=== PATIENT | male | born 1975 | race Caucasian/White ===

== ENCOUNTER 2020-10-04 19:53 | Observation (INO) ==
[2020-10-05] MEDS ORDERED: Perflutren Lipid Microsphere 1.3 ML in 0.9 % Sodium Chloride 8.7 ML IVP PRN (00:30)
[2020-10-05] MEDS ORDERED: *HR* Metoprolol 5 MG/5 ML VIAL IVP PRN (00:33)
[2020-10-05] MEDS: Aspirin Enteric Coated 81 MG Tablet PO SCH ×2 (00:50→07:41)
[2020-10-05] MEDS ORDERED: *HR* LORazepam 2 MG/ML VIAL IVP PRN ×3 (01:25)
[2020-10-05 05:49] LABS: Estimated Average Glucose 123 mg/dl; Hemoglobin A1C 5.9 %
[2020-10-05] MEDS ORDERED: *HR* Heparin 5,000 UNIT/ML VIAL SQ SCH (06:00)
[2020-10-05 06:10] LABS: Chol/HDL Ratio 5.2 (0-4.9); Cholesterol 196 mg/dL (< 200); HDL Cholesterol 38 mg/dL (40-59); LDL Cholesterol,Calculated 141 mg/dL (< 100); Triglycerides 87 mg/dL (< 150); Troponin I < 0.03 ng/mL (< 0.04)
[2020-10-05 06:27] LABS: Folate 10.8 ng/mL (3.0-16.0)
[2020-10-05] MEDS ORDERED: Folic Acid 1 MG TABLET PO SCH (09:00)
[2020-10-05] MEDS ORDERED: Thiamine (B-1) 100 MG TABLET PO SCH (09:00)
[2020-10-05 15:42] VITALS: BP 139/80; PULSE 77; TEMP 98.6; O2SAT 95
== END 2020-10-05 16:45 | disposition home or self-care (01) ==
LOC: 3BNU
PROVIDERS: ADMIT Internal Medicine; ATTEND Internal Medicine

== ENCOUNTER 2020-10-12 19:05 | Inpatient (IN) ==
[2020-10-12] MEDS ORDERED: Ondansetron 4 MG/2 ML VIAL IVP PRN (22:34)
[2020-10-12] MEDS ORDERED: Naloxone 0.4 MG/ML INJ IVP PRN (22:34)
[2020-10-12] MEDS ORDERED: 0.9 % Sodium Chloride 1,000 ML IVC SCH (22:45)
[2020-10-12] MEDS ORDERED: *HR* LORazepam 2 MG/ML VIAL IVP PRN ×3 (22:47)
[2020-10-12] MEDS: Nicotine 14 MG PATCH.TD24 TD SCH (23:18)
[2020-10-12 23:30] LABS: Troponin I < 0.03 ng/mL (< 0.04)
[2020-10-12 23:43] LABS: Thyroid Stimulating Hormone 2.461 mcIU/mL (0.340-5.600)
[2020-10-12] MEDS ORDERED: *HR* LORazepam 1 MG TABLET PO ONE (23:49)
[2020-10-13] MEDS: *HR* OxyCODONE Immed Rel 5 MG TABLET PO PRN ×4 (00:03→23:12)
[2020-10-13 02:54] LABS: Hematocrit 37.7 % (37.5-50.1); Hemoglobin 12.7 g/dL (12.9-16.9); Mean Corpuscular HGB Conc 33.7 g/dL (31.6-35.5); Mean Corpuscular Hemoglobin 32.6 pg (28.0-33.3); Mean Corpuscular Volume 96.7 fL (83.0-100.0); Mean Platelet Volume 9.7 fL (9.4-12.4); Platelet Count 376 K/mcL (140-400); Red Cell Distribution Width 12.1 % (11.5-14.5); White Blood Count 15.9 K/mcL (4.3-11.1)
[2020-10-13 03:14] LABS: BUN/Creatinine Ratio 14 (6-26); Blood Urea Nitrogen 12 mg/dL (6-20); Calcium 8.8 mg/dL (8.6-10.3); Carbon Dioxide 21 mEq/L (23-29); Chloride 103 mEq/L (98-107); Chol/HDL Ratio 2.8 (0-4.9); Cholesterol 105 mg/dL (< 200); Glucose 105 mg/dL (70-105); HDL Cholesterol 37 mg/dL (40-59); LDL Cholesterol,Calculated 55 mg/dL (< 100); Osmolality,Calculated 276 (280-300); Potassium 3.8 mEq/L (3.5-5.1); Sodium 133 mEq/L (136-145); Triglycerides 66 mg/dL (< 150); eGFR For African Americans > 60 (> 60); eGFR For Non-African Americans > 60 (> 60)
[2020-10-13] MEDS: Piperacillin/Tazobactam 3.375 GM in 0.9 % Sodium Chloride Mini Bag 100 ML IVPB SCH ×3 (09:27→23:06)
[2020-10-13] MEDS ORDERED: Vancomycin 1,500 MG/265 ML IV.SOLN IVPB ONE (10:00)
[2020-10-13] MEDS: Acetaminophen 325 MG TABLET PO PRN (12:03)
[2020-10-13] MEDS: Gabapentin 300 MG CAPSULE PO SCH ×3 (12:03→19:35)
[2020-10-13] MEDS ORDERED: Vancomycin 1,500 MG/265 ML IV.SOLN IVPB SCH (23:00)
[2020-10-13] MEDS: Nicotine 14 MG PATCH.TD24 TD SCH (23:05)
[2020-10-14] MEDS: Acetaminophen 325 MG TABLET PO PRN (01:39)
[2020-10-14 01:49] LABS: Basophils # 0.1 K/mcL (0.0-0.2); Basophils % 0.4 %; Eosinophils # 0.1 K/mcL (0.0-0.6); Eosinophils % 0.5 %; Hematocrit 41.5 % (37.5-50.1); Hemoglobin 13.7 g/dL (12.9-16.9); Immature Granulocytes % 0.5 % (0-4); Lymphocytes # 1.9 K/mcL (0.6-4.6); Lymphocytes % 11.3 %; Mean Corpuscular Hemoglobin 32.1 pg (28.0-33.3); Mean Corpuscular Volume 97.2 fL (83.0-100.0); Mean Platelet Volume 9.4 fL (9.4-12.4); Monocytes # 1.4 K/mcL (0.0-1.3); Monocytes % 8.3 %; Neutrophils # 13.2 K/mcL (1.6-8.9); Platelet Count 417 K/mcL (140-400); Red Blood Count 4.27 M/mcL (4.19-5.50); Red Cell Distribution Width 12.2 % (11.5-14.5); White Blood Count 16.8 K/mcL (4.3-11.1)
[2020-10-14 02:09] LABS: BUN/Creatinine Ratio 10 (6-26); Blood Urea Nitrogen 9 mg/dL (6-20); Calcium 9.2 mg/dL (8.6-10.3); Carbon Dioxide 22 mEq/L (23-29); Chloride 97 mEq/L (98-107); Glucose 103 mg/dL (70-105); Magnesium 1.8 mg/dL (1.6-2.6); Osmolality,Calculated 269 (280-300); Phosphorous 3.2 mg/dL (2.7-4.5); Potassium 4.2 mEq/L (3.5-5.1); Sodium 130 mEq/L (136-145); eGFR For African Americans > 60 (> 60); eGFR For Non-African Americans > 60 (> 60)
[2020-10-14] MEDS: *HR* OxyCODONE Immed Rel 5 MG TABLET PO PRN ×2 (06:17→12:48)
[2020-10-14] MEDS: Piperacillin/Tazobactam 3.375 GM in 0.9 % Sodium Chloride Mini Bag 100 ML IVPB SCH ×3 (07:17→23:49)
[2020-10-14] MEDS: Gabapentin 300 MG CAPSULE PO SCH ×3 (07:21→20:10)
[2020-10-14] MEDS ORDERED: Ondansetron 4 MG/2 ML VIAL ONE (07:25)
[2020-10-14] MEDS ORDERED: Lidocaine HCL 4 ML Topical Solution (Laryng-O-Jet Kit Sterile Pak) TP ONE (07:25)
[2020-10-14] MEDS ORDERED: *HR* Propofol 200 MG/20 ML VIAL IVP ONE (07:25)
[2020-10-14] MEDS ORDERED: *HR* Rocuronium Bromide 50 MG/5 ML VIAL ONE ×2 (07:25→08:48)
[2020-10-14] MEDS ORDERED: *HR* FentaNYL (PF) 100 MCG/2 ML VIAL ONE (07:25)
[2020-10-14] MEDS ORDERED: *HR* Midazolam HCl 2 MG/2 ML VIAL ONE (07:25)
[2020-10-14] MEDS ORDERED: Lidocaine -MPF 2% 2 ML VIAL ONE (07:25)
[2020-10-14] MEDS ORDERED: *HR* Succinylcholine 200 MG/10 ML VIAL IVP ONE (07:25)
[2020-10-14] MEDS ORDERED: *HR* HYDROmorphone PF 0.5 MG/0.5 ML SYRINGE IVP PRN (07:56)
[2020-10-14] MEDS ORDERED: *HR* HYDROMORPHONE 2 MG/ML VIAL ONE (08:36)
[2020-10-14] MEDS ORDERED: Ketorolac 30 MG/ML VIAL ONE (08:43)
[2020-10-14] MEDS ORDERED: Sugammadex Sodium 200 MG/2 ML VIAL IV ONE ×2 (08:49→09:21)
[2020-10-14] MEDS ORDERED: Ringers Solution, Lactated 1,000 ML ONE (10:25)
[2020-10-14] MEDS ORDERED: Aspirin 81 MG TAB.CHEW PO SCH (10:44)
[2020-10-14] MEDS ORDERED: Naloxone 0.4 MG/ML INJ IVP PRN ×2 (11:38)
[2020-10-14] MEDS ORDERED: Ondansetron 4 MG/2 ML VIAL IVP PRN ×2 (11:38)
[2020-10-14] MEDS ORDERED: *HR* LORazepam 2 MG/ML VIAL IVP PRN ×2 (11:38)
[2020-10-14] MEDS ORDERED: Acetaminophen 325 MG TABLET PO PRN (11:38)
[2020-10-14] MEDS: Ketorolac 15 MG/ML VIAL IVP SCH ×3 (12:48→23:50)
[2020-10-14] MEDS: amLODIPine 5 MG TABLET PO SCH (12:49)
[2020-10-14] MEDS: 0.9 % Sodium Chloride 1,000 ML IVC SCH (12:49)
[2020-10-14] MEDS: *HR* Heparin 5,000 UNIT/ML VIAL SQ SCH ×2 (14:56→20:10)
[2020-10-14] MEDS: *HR* LORazepam 2 MG/ML VIAL IVP PRN (14:57)
[2020-10-14] MEDS ORDERED: *HR* Heparin 5,000 UNIT/ML VIAL SQ SCH ×2 (18:00)
[2020-10-14] MEDS: Famotidine 20 MG TABLET PO SCH (20:10)
[2020-10-14] MEDS: Nicotine 14 MG PATCH.TD24 TD SCH (23:49)
[2020-10-15] MEDS: Vancomycin 1,500 MG/265 ML IV.SOLN IVPB SCH ×2 (00:10→11:06)
[2020-10-15] MEDS: 0.9 % Sodium Chloride 1,000 ML IVC SCH (00:10)
[2020-10-15] MEDS: Ketorolac 15 MG/ML VIAL IVP SCH ×4 (05:28→23:56)
[2020-10-15] MEDS: *HR* Heparin 5,000 UNIT/ML VIAL SQ SCH ×3 (05:28→21:30)
[2020-10-15 05:29] LABS: Basophils % 0.1 %; Hematocrit 36.7 % (37.5-50.1); Immature Granulocytes % 0.6 % (0-4); Lymphocytes # 1.2 K/mcL (0.6-4.6); Lymphocytes % 7.1 %; Mean Corpuscular HGB Conc 32.7 g/dL (31.6-35.5); Mean Corpuscular Hemoglobin 31.8 pg (28.0-33.3); Mean Corpuscular Volume 97.3 fL (83.0-100.0); Mean Platelet Volume 9.4 fL (9.4-12.4); Monocytes # 0.8 K/mcL (0.0-1.3); Monocytes % 4.6 %; Neutrophils # 14.1 K/mcL (1.6-8.9); Platelet Count 382 K/mcL (140-400); Red Blood Count 3.77 M/mcL (4.19-5.50); Segmented Neutrophils % 87.6 %; White Blood Count 16.2 K/mcL (4.3-11.1)
[2020-10-15 05:49] LABS: BUN/Creatinine Ratio 21 (6-26); Blood Urea Nitrogen 14 mg/dL (6-20); Calcium 8.6 mg/dL (8.6-10.3); Carbon Dioxide 23 mEq/L (23-29); Chloride 105 mEq/L (98-107); Glucose 147 mg/dL (70-105); Magnesium 2.2 mg/dL (1.6-2.6); Osmolality,Calculated 283 (280-300); Phosphorous 3.7 mg/dL (2.7-4.5); Potassium 4.4 mEq/L (3.5-5.1); Sodium 135 mEq/L (136-145); eGFR For African Americans > 60 (> 60); eGFR For Non-African Americans > 60 (> 60)
[2020-10-15] MEDS: *HR* LORazepam 2 MG/ML VIAL IVP PRN (06:24)
[2020-10-15] MEDS: Gabapentin 300 MG CAPSULE PO SCH ×3 (08:05→20:30)
[2020-10-15] MEDS: Famotidine 20 MG TABLET PO SCH ×2 (08:05→20:30)
[2020-10-15] MEDS: *HR* OxyCODONE Immed Rel 5 MG TABLET PO PRN ×2 (08:05→20:34)
[2020-10-15] MEDS: amLODIPine 5 MG TABLET PO SCH (08:06)
[2020-10-15] MEDS: Aspirin 81 MG TAB.CHEW PO SCH (08:06)
[2020-10-15] MEDS: Piperacillin/Tazobactam 3.375 GM in 0.9 % Sodium Chloride Mini Bag 100 ML IVPB SCH ×3 (08:06→23:55)
[2020-10-15] MEDS: Nicotine 14 MG PATCH.TD24 TD SCH (23:57)
[2020-10-16] MEDS: *HR* OxyCODONE Immed Rel 5 MG TABLET PO PRN ×5 (00:57→21:06)
[2020-10-16] MEDS: Vancomycin 1,500 MG/265 ML IV.SOLN IVPB SCH (00:58)
[2020-10-16] MEDS: *HR* Heparin 5,000 UNIT/ML VIAL SQ SCH ×3 (05:24→20:54)
[2020-10-16] MEDS: Ketorolac 15 MG/ML VIAL IVP SCH ×4 (05:24→20:54)
[2020-10-16 05:46] LABS: Basophils % 0.1 %; Eosinophils % 0.2 %; Hematocrit 32.1 % (37.5-50.1); Hemoglobin 10.8 g/dL (12.9-16.9); Immature Granulocytes % 1.6 % (0-4); Lymphocytes # 1.8 K/mcL (0.6-4.6); Lymphocytes % 11.9 %; Mean Corpuscular HGB Conc 33.6 g/dL (31.6-35.5); Mean Corpuscular Hemoglobin 32.5 pg (28.0-33.3); Mean Corpuscular Volume 96.7 fL (83.0-100.0); Mean Platelet Volume 9.6 fL (9.4-12.4); Monocytes # 0.7 K/mcL (0.0-1.3); Monocytes % 4.8 %; Neutrophils # 12.1 K/mcL (1.6-8.9); Platelet Count 434 K/mcL (140-400); Red Blood Count 3.32 M/mcL (4.19-5.50); Red Cell Distribution Width 12.1 % (11.5-14.5); Segmented Neutrophils % 81.4 %; White Blood Count 14.9 K/mcL (4.3-11.1)
[2020-10-16 06:09] LABS: BUN/Creatinine Ratio 27 (6-26); Blood Urea Nitrogen 21 mg/dL (6-20); Calcium 8.7 mg/dL (8.6-10.3); Carbon Dioxide 24 mEq/L (23-29); Chloride 105 mEq/L (98-107); Glucose 106 mg/dL (70-105); Magnesium 2.3 mg/dL (1.6-2.6); Osmolality,Calculated 285 (280-300); Phosphorous 3.7 mg/dL (2.7-4.5); Sodium 136 mEq/L (136-145); eGFR For African Americans > 60 (> 60); eGFR For Non-African Americans > 60 (> 60)
[2020-10-16] MEDS: Aspirin 81 MG TAB.CHEW PO SCH (09:27)
[2020-10-16] MEDS: Gabapentin 300 MG CAPSULE PO SCH ×3 (09:27→20:54)
[2020-10-16] MEDS: Famotidine 20 MG TABLET PO SCH ×2 (09:27→20:54)
[2020-10-16] MEDS: amLODIPine 5 MG TABLET PO SCH (09:27)
[2020-10-16] MEDS: Piperacillin/Tazobactam 3.375 GM in 0.9 % Sodium Chloride Mini Bag 100 ML IVPB SCH (09:27)
[2020-10-16] MEDS: Amoxicillin/Clavulanate 500 MG TABLET PO SCH ×2 (15:15→20:53)
[2020-10-17] MEDS: *HR* OxyCODONE Immed Rel 5 MG TABLET PO PRN ×3 (00:49→11:07)
[2020-10-17] MEDS: Nicotine 14 MG PATCH.TD24 TD SCH (00:49)
[2020-10-17] MEDS: Ketorolac 15 MG/ML VIAL IVP SCH (05:41)
[2020-10-17] MEDS: *HR* Heparin 5,000 UNIT/ML VIAL SQ SCH (05:42)
[2020-10-17 06:59] LABS: Basophils # 0.1 K/mcL (0.0-0.2); Basophils % 0.4 %; Eosinophils # 0.4 K/mcL (0.0-0.6); Eosinophils % 3.1 %; Hematocrit 37.6 % (37.5-50.1); Hemoglobin 12.1 g/dL (12.9-16.9); Immature Granulocytes % 0.9 % (0-4); Lymphocytes # 2.2 K/mcL (0.6-4.6); Lymphocytes % 18.6 %; Mean Corpuscular HGB Conc 32.2 g/dL (31.6-35.5); Mean Corpuscular Hemoglobin 31.8 pg (28.0-33.3); Mean Corpuscular Volume 98.9 fL (83.0-100.0); Mean Platelet Volume 9.3 fL (9.4-12.4); Monocytes # 0.9 K/mcL (0.0-1.3); Monocytes % 7.3 %; Neutrophils # 8.1 K/mcL (1.6-8.9); Platelet Count 501 K/mcL (140-400); Red Cell Distribution Width 12.4 % (11.5-14.5); Segmented Neutrophils % 69.7 %; White Blood Count 11.6 K/mcL (4.3-11.1)
[2020-10-17 07:18] LABS: BUN/Creatinine Ratio 20 (6-26); Blood Urea Nitrogen 17 mg/dL (6-20); Calcium 8.9 mg/dL (8.6-10.3); Carbon Dioxide 24 mEq/L (23-29); Chloride 104 mEq/L (98-107); Glucose 78 mg/dL (70-105); Magnesium 2.1 mg/dL (1.6-2.6); Osmolality,Calculated 282 (280-300); Phosphorous 4.1 mg/dL (2.7-4.5); Potassium 4.2 mEq/L (3.5-5.1); Sodium 136 mEq/L (136-145); eGFR For African Americans > 60 (> 60); eGFR For Non-African Americans > 60 (> 60)
[2020-10-17] MEDS: Aspirin 81 MG TAB.CHEW PO SCH (07:33)
[2020-10-17] MEDS: Famotidine 20 MG TABLET PO SCH (07:34)
[2020-10-17] MEDS: Gabapentin 300 MG CAPSULE PO SCH (07:34)
[2020-10-17] MEDS: amLODIPine 5 MG TABLET PO SCH (07:34)
[2020-10-17] MEDS: Amoxicillin/Clavulanate 500 MG TABLET PO SCH (07:34)
[2020-10-17 11:11] VITALS: BP 135/82; PULSE 87; TEMP 98.5; O2SAT 97
== END 2020-10-17 13:23 | disposition home or self-care (01) | DRG 853 ==
LOC: 2ANU → SUATTDRO 10-13 18:52 → 2NNU 10-14 11:25
PROVIDERS: ADMIT Internal Medicine; ATTEND Internal Medicine